=== PATIENT | male | born 1995 | race Asian ===

== ENCOUNTER 2020-06-01 13:51 | Outpatient (REF) | payer OTHER, SELFPAY ==
[2020-06-01 14:27] LABS: COVID-19 Test Negative (Negative)
== END 2020-06-01 13:52 | disposition home or self-care (01) ==
LOC: HO.EMPCOV 13:51
PROVIDERS: Visit Provider Internal Medicine
DX: Z20.828 Contact with and (suspected) exposure to other viral communicable diseases (principal)
CPT/HCPCS: 87635; C9803

== ENCOUNTER → 2021-03-19 15:35 | Outpatient (BNVA) | payer OTHER, SELFPAY | DX: Z20.822 Contact with and (suspected) exposure to COVID-19 (principal) | CPT/HCPCS: 36415; 87635 ==

== ENCOUNTER 2022-08-26 09:24 | Outpatient (REF) | payer OTHER, SELFPAY | END 2022-08-26 09:25 | disposition home or self-care (01) | LOC: HO.LNP 09:24 | PROVIDERS: Referring Provider Internal Medicine; Visit Provider Surgery | DX: K61.1 Rectal abscess (principal) | CPT/HCPCS: 10060; 87070; 87077; 87186; 87205 ==

== ENCOUNTER → 2022-09-01 09:12 | Outpatient (BNVA) | payer OTHER, SELFPAY | PROVIDERS: Visit Provider Surgery | DX: K61.1 Rectal abscess (principal) ==

== ENCOUNTER 2022-12-08 08:38 | Outpatient (REF) | payer OTHER, SELFPAY ==
[2022-12-08 11:16] LABS: MANUAL DIFF FLAG NO
[2022-12-08 11:26] LABS: Appearance Urine Clear; Basophils Percent Auto 0.5 % (0-2); Color Urine Yellow; Eosinophils Absolute Auto 0.2 X10*3/uL (0.0-0.4); Eosinophils Percent Auto 3.3 % (0-4); Glucose Urine UA Negative (Negative); Hematocrit 46.3 % (42.0-52.0); Hemoglobin 15.7 g/dl (14.0-18.0); Imm Gran Abs Auto 0.02 X10*3/uL (0.00-0.03); Imm Gran Pct Auto 0.3 % (0.0-0.4); Leukocyte Esterase Urine Negative (Negative); Lymphocytes Absolute Auto 3.4 X10*3/uL (1.2-4.9); Mean Corpuscular HGB Conc 33.9 g/dl (31.0-36.0); Mean Corpuscular Hemoglobin 28.5 pg (27.0-33.0); Mean Platelet Volume 9.9 fL (9.4-12.4); Monocytes Absolute Auto 0.5 X10*3/uL (0.1-1.2); Monocytes Percent Auto 7.4 % (2-11); Neutrophils Absolute Auto 3.1 x10*3/uL (2.0-8.3); Neutrophils Percent Auto 42.5 % (45-73); Nitrite Urine Negative (Negative); PH 5.5 (5.0-9.0); Platelet Count 260 X10*3/uL (160-400); Red Blood Count 5.51 X10*6/uL (4.60-5.80); Red Cell Distribution Width 12.1 % (11.0-16.0); Specific Gravity - Urine 1.025 (1.005-1.025); Urine Blood Negative (Negative); Urine Ketones Negative (Negative); Urine Protein Negative (Neg-Trace); White Blood Count 7.3 X10*3/uL (4.8-10.8)
[2022-12-08 11:28] LABS: Bacteria Urine None Seen (None Seen); Hyaline Casts Urine 0-2 /LPF (0-2); RBC Urine 0-2 /HPF (0-2); Squamous Epithelial Cell Urine 0-2 /HPF (0-2); WBC Urine 0-5 /HPF (0-5)
[2022-12-08 12:10] LABS: Alanine Aminotransferase 26 U/L (0-40); Albumin Level 4.4 g/dL (3.5-5.0); Alkaline Phosphatase 63 U/L (39-117); Anion Gap 11 (12-20); Aspartate Amino Transferase 25 U/L (5-37); Bilirubin Total 0.5 mg/dL (0.0-1.0); Blood Urea Nitrogen 16 mg/dL (9-16); Calcium 9.1 mg/dL (8.4-10.2); Carbon Dioxide 29 mmol/L (22-29); Chloride 107 mmol/L (96-108); Cholesterol 165 mg/dL; Estimated Glomerular Filt Rate > 60; Glucose Fasting 99 mg/dL (60-99); HDL Cholesterol 37 mg/dL; LDL Cholesterol Calculated 68 mg/dl; Sodium 143 mmol/L (135-145); TSH reflex Free T4 1.31 uIU/mL (0.32-4.0); Total Protein 7.9 g/dL (6.5-8.0); Triglycerides 303 mg/dL
== END 2022-12-08 08:39 | disposition home or self-care (01) ==
LOC: HO.HMGCLDS 08:38
PROVIDERS: PCP Internal Medicine; Visit Provider Internal Medicine
DX: Z00.00 Encounter for general adult medical examination without abnormal findings (principal); R63.4 Abnormal weight loss
CPT/HCPCS: 36415; 80053; 80061; 81001; 84443; 85025

== ENCOUNTER 2023-01-13 11:03 | Outpatient (AMB) | payer OTHER, SELFPAY ==
[2023-01-13 11:08] VITALS: BP 106/72; PULSE 90; O2SAT 98; BMI 24.6
--- NOTE | 2023-01-13 11:08 | MHC.PC.OV ---
Vital Signs 01/13/23 11:08 Height 5 ft 8 in Weight 162 lb BMI 24.6 BP 106/72 Blood Pressure Location Lt brachial Position Sitting Pulse 90 Pulse Source Pulse Oximeter Pulse Oximetry (%) 98 Oxygen Delivery Method Room Air Intake Visit Reasons: 1 month follow up Intake Note: Pt is here today for 1 month follow up visit. Allergies No Known Allergies Allergy (Verified 01/13/23 11:09) Tobacco use date assessed: 01/13/23 Dental Screening Dental Screen Date: 01/13/23 Did you have a dental visit in the last 12 months?: Yes Did you have a dental problem in the last 6 months where you did not have access to dental care?: No Was dental information given to patient?: Patient has dentist HPI 1 month follow up HPI Details Pt presents for depression, better on Zoloft. Pt c/o chronic postnasal drip and has been taking Zyrtec and using Flonase nasal spray. Patient has an appointment with glue drier operator next August. He used to take montelukast with antihistamine with good effect. 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 Adarsh Arguelles, Gabbi Cai, Malcom Drake and colleagues, with an educational tanner from [employer] Review of Systems Const All systems reviewed & are unremarkable except as noted in HPI and below Reports no additional complaints Eyes Reports no additional complaints ENT Reports no additional complaints Card Reports no additional complaints Resp Reports no additional complaints GI Reports no additional complaints Reports no additional complaints Physical exam (Primary Care) Vital Signs: Last Vital Signs Pulse 90 01/13/23 11:08 BP 106/72 01/13/23 11:08 Pulse Ox 98 01/13/23 11:08 Oxygen Delivery Method Room Air 01/13/23 11:08 BMI result Body Mass Index 24.6 Tobacco/Smoking Status: Tobacco use Status Tobacco use date assessed 01/13/23 01/13/23 11:12 Patient Tobacco Use Status Never used Tobacco 01/13/23 11:12 e-Cigarette/Vaping Use Never Used 01/13/23 11:12 Thrive Assessment: Date of Thrive Assessment Date Thrive assessed 12/08/22 01/13/23 11:12 Const General: no acute distress HENMT Head: Yes normal to inspection Ears: hearing grossly normal bilaterally General nose exam: Abnormal mucous membranes and turbinates present erythematous Face and sinus: Yes normal facial exam and No sinus tenderness Mouth: Normal oral and palatal mucosa present Throat: Yes postnasal drainage Eyes General: appearance normal, both eyes and all related structures Neck Neck: Yes no lymphadenopathy and Yes supple Resp Effort & Inspection: normal respiratory effort Auscultation: clear to auscultation bilaterally Cardio Rhythm: regular rhythm Heart sounds: S1 normal heart sound present and S2 normal heart sound present Assessment and Plan Assessment & Plan (1) Hypertriglyceridemia: Code(s): E78.1 - Pure hyperglyceridemia Plan: Low simple carbohydrates low saturated fat diet discussed with the patient. Patient was advised to increase fish oil supplement 2 capsules a day increase unsaturated fatty acids and whole grains. He will recheck lipid profile in 4 months (2) Anxiety and depression: Code(s): F41.9 - Anxiety disorder, unspecified; F32.A - Depression, unspecified Plan: Continue current medications and follow-up with a counselor (3) Postnasal drip: Code(s): R09.82 - Postnasal drip Plan: Add montelukast to Zyrtec and continue using Flonase. Patient will see glue drier operator next year Orders: Orders Lipid Panel 4 Months E78.1 - Pure hyperglyceridemia Medications: New montelukast 10 mg PO BEDTIME 90 tabs 3RF Changed From sertraline 1/2 tabl for 1 week, then 1 tabl 50 mg PO DAILY 90 tabs 1RF To sertraline 1 tabl 50 mg PO DAILY 90 tabs 3RF Coding Level of Care Code Est Pt Level 4 (60201) Diagnoses Hypertriglyceridemia E78.1 Anxiety and depression F41.9; F32.A Postnasal drip R09.82
== END 2023-01-13 11:42 | disposition home or self-care (01) ==
PROVIDERS: PCP Internal Medicine; Visit Provider Internal Medicine
DX: E78.1 Pure hyperglyceridemia (principal); F41.9 Anxiety disorder, unspecified; F32.A Depression, unspecified; R09.82 Postnasal drip
CPT/HCPCS: 99214